=== PATIENT | male | born 1940 | race Caucasian/White ===

== ENCOUNTER 2018-10-15 07:10 | Emergency (ER) | payer OTHER ==
[~2018-10-15] VITALS: Ht 162.6 cm; Wt 97.5 kg
[~2018-10-15 07:10] MED LIST: FLAGYL500MG PO; NEURONTIN PO; PROBIOTIC & AC1 EACH PO; PROTONIX40 MG PO
[2018-10-15] MEDS ORDERED: LOSARTAN POTASS25 MG (07:27)
[2018-10-15] MEDS ORDERED: LIPITOR20 MG (07:28)
[2018-10-15] MEDS ORDERED: GLUCOTROL10 MG (07:28)
[2018-10-15] MEDS ORDERED: HYDRALAZINE HCL25 MG (07:29)
[2018-10-15] MEDS ORDERED: CLOPIDOGREL BIS75 MG (08:27)
[2018-10-15] MEDS ORDERED: AMLODIPINE BESY10 MG (08:28)
== END 2018-10-15 11:14 | disposition home or self-care (01) ==
LOC: ER 07:10
DX: M54.5 Low back pain (principal); S33.5XXS Sprain of ligaments of lumbar spine, sequela; X50.0XXS Overexertion from strenuous movement or load, sequela